=== PATIENT | male | born 1985 | race Caucasian/White ===

== ENCOUNTER → 2017-11-08 | Outpatient (CLI) | payer OTHER ==
[~2017-11-08] MED LIST: ACEASPCAF PO; ACEBUTCAFT PO; COMPAZINE10 MG PO; Esgic Tablet1 EACH PO; Imitrex6 MG/0.52 SQ; NAPR500 PO; OXYACE5T PO; PROC10 PO
== END | disposition home or self-care (01) ==
LOC: LAB SHORT 07:23 → PLD 07:23
DX: D22.4 Melanocytic nevi of scalp and neck (principal)
CPT/HCPCS: 88305

== ENCOUNTER 2019-03-08 16:32 | Inpatient (IN) | payer OTHER ==
[~2019-03-08] VITALS: Ht 193 cm; Wt 123.8 kg
--- NOTE | 2019-03-08 18:11 | NUR ---
PATIENT ADMITT THE PATIENT WAS A DIRECT ADMITT FOR DR. LOPEZ. THE PATIENT ADMISSION WAS COMPLETED AMD THE DOCTOR WAS CALLED FOR ORDERS. WILL CONTINUED TO MONITOR
[2019-03-08 18:53] LABS: BASOPHILS ABSOLUTE AUTO 0.02 K/mm3 (0.00-0.23); BASOPHILS PERCENT AUTO 0 % (0-2); EOSINOPHILS ABSOLUTE AUTO 0.01 K/mm3 (0.00-0.68); EOSINOPHILS PERCENT AUTO 0 % (0-6); Hematocrit 42.3 % (37.0-53.0); Hemoglobin 13.9 g/dL (13.5-17.5); IMMATURE GRAN ABSOLUTE AUTO 0.07 K/mm3 (0.00-0.10); IMMATURE GRAN PERCENT AUTO 1 % (0-1); LYMPHOCYTES ABSOLUTE AUTO 0.75 K/mm3 (0.84-5.20); LYMPHOCYTES PERCENT AUTO 5 % (21-46); MONOCYTES ABSOLUTE AUTO 1.19 K/mm3 (0.16-1.47); MONOCYTES PERCENT AUTO 8 % (4-13); Mean Corpuscular HGB 30.6 pg (26.0-34.0); Mean Corpuscular HGB Conc 32.9 g/dL (31.5-36.5); Mean Corpuscular Volume 93 fL (80-100); Mean Platelet Volume 9.4 fL (9.1-12.4); NEUTROPHILS ABSOLUTE AUTO 12.25 K/mm3 (1.96-9.15); NEUTROPHILS PERCENT AUTO 86 % (41-73); Platelet Count 227 K/mm3 (150-400); RDW Coefficient Variation 12.5 % (11.7-14.2); RDW Standard Deviation 42.8 fL (35.1-46.3); Red Blood Cell Count 4.54 M/mm3 (4.30-5.90); White Blood Cell Count 14.29 K/mm3 (4.00-11.30)
--- NOTE | 2019-03-09 03:24 | NUR ---
SHIFT SUMMARY PATIENT HAD NO ACUTE CHANGES OBSERVED THIS SHIFT. AXO X4 AND INDEPENDENT IN THE ROOM. PIV REMAINS INTACT. IV ABX INFUSED. PATIENT'S FRIEND PRESENT AT SHIFT CHANGE. VSS/AFEBRILE. DENIES PAIN, SOB, AND N/V. TAKES MEDICATION WHOLE WITH WATER. CONSULT IN AM. COOPERATIVE WITH CARE. CALL LIGHT IN REACH. BED IN LOWEST POSITION. WILL CONTINUE TO MONITOR UNTIL DAY SHIFT NURSE ASSUMES CARE.
[2019-03-09 05:33] LABS: BASOPHILS ABSOLUTE AUTO 0.02 K/mm3 (0.00-0.23); BASOPHILS PERCENT AUTO 0 % (0-2); EOSINOPHILS ABSOLUTE AUTO 0.24 K/mm3 (0.00-0.68); EOSINOPHILS PERCENT AUTO 2 % (0-6); Hematocrit 39.1 % (37.0-53.0); Hemoglobin 13.1 g/dL (13.5-17.5); IMMATURE GRAN ABSOLUTE AUTO 0.04 K/mm3 (0.00-0.10); IMMATURE GRAN PERCENT AUTO 0 % (0-1); LYMPHOCYTES PERCENT AUTO 15 % (21-46); MONOCYTES PERCENT AUTO 10 % (4-13); Mean Corpuscular HGB 31.3 pg (26.0-34.0); Mean Corpuscular HGB Conc 33.5 g/dL (31.5-36.5); Mean Corpuscular Volume 93 fL (80-100); Mean Platelet Volume 9.3 fL (9.1-12.4); NEUTROPHILS ABSOLUTE AUTO 7.36 K/mm3 (1.96-9.15); NEUTROPHILS PERCENT AUTO 72 % (41-73); Platelet Count 217 K/mm3 (150-400); RDW Coefficient Variation 12.5 % (11.7-14.2); Red Blood Cell Count 4.19 M/mm3 (4.30-5.90); White Blood Cell Count 10.16 K/mm3 (4.00-11.30)
[2019-03-09 06:00] LABS: Anion Gap 6 mmol/L (6-16); Blood Urea Nitrogen 18 mg/dL (8-24); Bun/Creatinine Ratio 19.9 (12.0-20.0); CO2, Blood 27 mmol/L (21-32); Calcium, Blood 8.4 mg/dL (8.5-10.1); Chloride, Blood 108 mmol/L (98-108); Glomerular Filtration Rate >60 (60-); Glucose, Blood 93 mg/dL (70-99); Potassium, Blood 3.8 mmol/L (3.5-5.5); Sodium, Blood 141 mmol/L (136-145)
--- NOTE | 2019-03-09 18:06 | NUR ---
SHIFT SUMMARY: NO ACUTE CHANGES TO REPORT THIS SHIFT. PT A&O; CALM AND COOPERATIVE WITH CARE. MEDICATED FOR R KNEE PAIN PER EMAR. ORTHOPEDIC CONSULT (DR Enrique ROMERO) THIS SHIFT; NO NEW ORDERS AT THIS TIME. IV ABX CONTINUING. WCTM.
--- NOTE | 2019-03-09 22:52 | NUR ---
PATIENT REPORTED R KNEE PAIN AND RECEIVED NORCO X ONE PER EMAR. WILL CONTINUE TO MONITOR.
[2019-03-10 04:53] LABS: Vancomycin, Trough 11.4 ug/mL (5.0-10.0)
--- NOTE | 2019-03-10 05:34 | NUR ---
SHIFT SUMMARY PATIENT HAD NO ACUTE CHANGES OBSERVED THIS SHIFT. AXO X4 AND INDEPENDENT IN THE ROOM. PATIENT REPORTS RIGHT KNEE PAIN WHEN AMBULATING X TWO AND RECEIVED NORCO PER EMAR. PIV REMAINS INTACT. IV ABXS INFUSED. TAKES MEDICATION WHOLE WITH WATER. VSS, AFEBRILE. DENIES SOB AND N/V. CALL LIGHT IN REACH. BED IN LOWEST POSITION. WILL CONTINUE TO MONITOR UNTIL DAY SHIFT NURSE ASSUMES CARE.
[2019-03-10 11:08] LABS: BASOPHILS ABSOLUTE AUTO 0.04 K/mm3 (0.00-0.23); BASOPHILS PERCENT AUTO 0 % (0-2); EOSINOPHILS ABSOLUTE AUTO 0.54 K/mm3 (0.00-0.68); EOSINOPHILS PERCENT AUTO 6 % (0-6); Hematocrit 41.8 % (37.0-53.0); Hemoglobin 13.3 g/dL (13.5-17.5); IMMATURE GRAN ABSOLUTE AUTO 0.07 K/mm3 (0.00-0.10); IMMATURE GRAN PERCENT AUTO 1 % (0-1); LYMPHOCYTES ABSOLUTE AUTO 1.92 K/mm3 (0.84-5.20); LYMPHOCYTES PERCENT AUTO 21 % (21-46); MONOCYTES ABSOLUTE AUTO 0.84 K/mm3 (0.16-1.47); MONOCYTES PERCENT AUTO 9 % (4-13); Mean Corpuscular HGB 30.9 pg (26.0-34.0); Mean Corpuscular HGB Conc 31.8 g/dL (31.5-36.5); Mean Platelet Volume 9.4 fL (9.1-12.4); NEUTROPHILS ABSOLUTE AUTO 5.93 K/mm3 (1.96-9.15); NEUTROPHILS PERCENT AUTO 64 % (41-73); Platelet Count 215 K/mm3 (150-400); RDW Coefficient Variation 12.5 % (11.7-14.2); RDW Standard Deviation 44.8 fL (35.1-46.3); White Blood Cell Count 9.34 K/mm3 (4.00-11.30)
[2019-03-10 11:13] LABS: Mean Corpuscular Volume 97 fL (80-100)
--- NOTE | 2019-03-10 18:20 | NUR ---
SHIFT SUMMARY: NO ACUTE CHANGES TO REPORT THIS SHIFT. PT A&O; CALM AND COOPERATIVE WITH CARE; INDEPENDENT IN ROOM. MEDICATED FOR R KNEE PAIN PER EMAR; MEDICATED FOR FEVER (100.9) PER EMAR. PERIPHERAL IV INFILTRATED THIS SHIFT; IV D/C'd; POWER GLIDE PLACED TO L UA; IV ABX CONTINUING. PER DR Enrique ROMERO, POSSIBLE I&D OF R KNEE ON 03/11. TM.
--- NOTE | 2019-03-11 18:35 | NUR ---
END OF SHIFT REPORT: PAIN CONTROLLED THOUGHOUT SHIFT. PATIENT INDEPENDENT IN THE ROOM. DR. ROMERO IN THE ROOM THIS MORNING TO INCISE RIGHT KNEE. PATIENT REPORTS THAT THERE WAS SEROSANGINOUS-PURULENT DRAINAGE. PER HIS REPORT, DR. ROMERO PACKED THE WOUND. DRESSING CLEAN/DRY/INTACT THROUGHOUT SHIFT. PATENT DENIES NAUSEA. REPORTED FATIGUE AND FEELING LIKE HE "HAD A FEVER" THIS EVENING. TEMPERATURE WITHIN NORMAL LIMITS. TURNED DOWN TEMPERATURE IN ROOM AND ENCOURAGED PATIENT TO REST.
[2019-03-12 07:27] LABS: Hemoglobin 13.1 g/dL (13.5-17.5); Mean Corpuscular HGB 30.5 pg (26.0-34.0); Mean Corpuscular HGB Conc 32.8 g/dL (31.5-36.5); Mean Corpuscular Volume 93 fL (80-100); Mean Platelet Volume 8.7 fL (9.1-12.4); Platelet Count 227 K/mm3 (150-400); RDW Coefficient Variation 12.1 % (11.7-14.2); RDW Standard Deviation 41.3 fL (35.1-46.3); White Blood Cell Count 10.31 K/mm3 (4.00-11.30)
[2019-03-12 07:41] LABS: Anion Gap 5 mmol/L (6-16); Blood Urea Nitrogen 17 mg/dL (8-24); Bun/Creatinine Ratio 18.1 (12.0-20.0); CO2, Blood 28 mmol/L (21-32); Calcium, Blood 8.4 mg/dL (8.5-10.1); Chloride, Blood 106 mmol/L (98-108); Creatinine, Blood 0.94 mg/dL (0.60-1.20); Glomerular Filtration Rate >60 (60-); Glucose, Blood 86 mg/dL (70-99); Potassium, Blood 4.3 mmol/L (3.5-5.5); Sodium, Blood 139 mmol/L (136-145)
--- NOTE | 2019-03-12 12:51 | NUR ---
DR. ROMERO AT BEDSIDE TO ASSESS INCISION. PER DR. ROMERO, PATIENT IS CLEARED TO DISCHARGE TODAY LONG HE IS DISCHARGED WITH PO [facility]T[employer]IOT[employer]. DR. GLEZ NOTIFIED. SHE PROVIDED WOUND CARE INSTRUCTIONS (CHANGE ONCE DAILY, PREFERABLY UNDRESS, TAKE A SHOWER, AND THEN REDRESS. PACK GENTLY WITH 4X4 GAUZE AND Q-TIP. COVER WITH MORE GAUZE. WRAP WITH AN [place] WRAP).
[2019-03-12] MEDS ORDERED: ACET325 PO (13:28)
[2019-03-12] MEDS ORDERED: GAVILAX17 GM PO (13:29)
[2019-03-12] MEDS ORDERED: Norco 5-325 Ta1 EACH PO (13:29)
[2019-03-12] MEDS ORDERED: Bactrim Ds Tab1 EACH PO (13:30)
--- NOTE | 2019-03-12 15:45 | NUR ---
PATIENT REPORTS INCREASED COMFORT TODAY. REQUIRED PAIN MEDICATION ONLY ONE TIME FOLLOWING DRESSING CHANGE. DR. ROMERO ROUNDED ON PATIENT TO ASSESS WOUND AND PROVIDE DISCHARGE DRESSING INSTRUCTIONS. NOTIFIED DR. GLEZ ON DR. CALIXTO'S RECOMMENDATIONS (SEE NURSES NOTE). PATIENT INDEPENDENT IN THE ROOM. PATIENT STABLE ON HIS FEET. DENIES DIZZINESS OR WEAKNESS IN THE RIGHT LEG. DISCHARGE PRESCRIPTIONS FAXED TO [facility] PER PATIENT REQUEST. DISCHARGE PRESCRIPTION FOR NORCO GIVEN TO PATIENT'S PER REQUEST. ALL DISCHARGE INSTRUCTIONS AND EDUCATION PROVIDED TO THE PATIENT. ALL QUESTIONS AND CONCERNS ADDRESSED. PATIENT DISCHARGED IN WHEELCHAIR WITH FAMILY. PATIENT STABLE AT TIME OF DISCHARGE.
== END 2019-03-12 15:48 | disposition home or self-care (01) | DRG 501 ==
LOC: UNDOADMOB 16:32 → MEDS 16:32 → UNDOADMOB 16:54 → MEDS 16:54 → ENPENDDIS 03-12 14:32 → MEDS 03-12 15:48
PROVIDERS: Family Medicine; Internal Medicine; ADMIT Family Medicine
PROC: 0M9 Bursae and Ligaments, Drainage (ICD-10-PCS; principal; 2019-03-11)
DX: M71.161 Other infective bursitis, right knee (principal); L03.115 Cellulitis of right lower limb; G43.909 Migraine, unspecified, not intractable, without status migrainosus; B95.61 Methicillin susceptible Staphylococcus aureus infection as the cause of diseases classified elsewhere
CPT/HCPCS: 36415; 73560-RT; 80048; 80202; 82565; 85025; 85027; 87040; 96365; 96366; 96367; 96372; 96376; A9270; A9270-GY; G0378; J0690; J0696; J1650; J1885; J3370; J7050

== ENCOUNTER → 2021-07-07 | Outpatient (CLI) | payer OTHER ==
[~2021-07-07] MED LIST changes: +ACET325 PO; +Bactrim Ds Tab1 EACH PO; +GAVILAX17 GM PO; +Norco 5-325 Ta1 EACH PO
== END | disposition home or self-care (01) ==
LOC: LAB SHORT 10:53 → LAB 10:53
DX: J02.9 Acute pharyngitis, unspecified (principal)
CPT/HCPCS: 87081

== ENCOUNTER 2022-09-16 13:32 | Emergency (ER) | payer OTHER ==
[~2022-09-16] VITALS: Ht 193 cm; Wt 136.1 kg
[2022-09-16] MEDS ORDERED: TIZA4 PO (14:23)
[2022-09-16] MEDS ORDERED: Norco 5-325 Ta1 EACH PO (14:35)
[2022-09-16] MEDS ORDERED: METPRE4DP PO (14:35)
[2022-09-16] MEDS ORDERED: IBUP600 PO (14:35)
[2022-09-16] MEDS ORDERED: CYCL10 PO (14:35)
== END 2022-09-16 14:51 | disposition home or self-care (01) ==
LOC: ER 13:32
DX: M54.50 Low back pain, unspecified (principal); Z79.899 Other long term (current) drug therapy
CPT/HCPCS: 72100; A9270; J1885